=== PATIENT | female | born 1975 | race Caucasian/White ===

== ENCOUNTER 2016-10-03 07:54 | Outpatient (CLI) | payer BC ==
[2016-10-03] MEDS ORDERED: GADOBUTROL 7.5 MMOL/7.5 ML VIAL IVP ONE (08:57)
== END 2016-10-03 07:55 | disposition home or self-care (01) ==
DX: K74.60 Unspecified cirrhosis of liver (principal); K76.89 Other specified diseases of liver; K76.6 Portal hypertension; I85.10 Secondary esophageal varices without bleeding; K85.90 Acute pancreatitis without necrosis or infection, unspecified; Q45.3 Other congenital malformations of pancreas and pancreatic duct; K80.20 Calculus of gallbladder without cholecystitis without obstruction
CPT/HCPCS: 74183; A9585

== ENCOUNTER 2023-02-03 16:31 | Outpatient (CLI) | payer BC ==
--- NOTE | 2023-02-10 12:37 | XRAY Report ---
PROCEDURE: Foot 3 View RT INDICATIONS: CONTUSION OF RIGHT FOOT TECHNIQUE: 3 views of the foot were acquired. COMPARISON: None. FINDINGS: Bones: No fractures or dislocations. No suspicious bony lesions. Soft tissues: No suspicious soft tissue calcifications or masses. IMPRESSION: No fracture or dislocation. Reviewed by: NARCISA Lewis on 02/04/2023 7:44 PM PDT Approved by: Jeanne Sloan MD on 02/04/2023 7:44 PM PDT Station ID: [id number]
== END 2023-02-03 16:32 | disposition home or self-care (01) ==
LOC: DI 16:31
PROVIDERS: ATTEND Nurse Practitioner
DX: S90.31XA Contusion of right foot, initial encounter (principal)